=== PATIENT | female | born 1935 | race Caucasian/White ===

== ENCOUNTER 2019-03-13 01:41 | Emergency (ER) | payer OTHER, MEDICAID ==
[~2019-03-13] VITALS: Ht 162.6 cm; Wt 117.9 kg
--- NOTE | 2019-03-13 01:41 | NUR ---
0141 - Patient to ER bed 3 to gown for evaluation. Side rails up.
[2019-03-13 01:51] VITALS: BP_SYST 172
--- NOTE | 2019-03-13 02:20 | NUR ---
Patient arrived by ambulance [id number] and able to verbalize her needs. Complaints of dizziness and nausea x 10 days. Dizziness increased this evening. Patient able to ambulate with steady gait. Denies any chest pain, sob, black out, chill, and fever.
[2019-03-13 02:27] LABS: BASOPHILS % (AUTO) 0.2 % (0.0-2.0); HEMATOCRIT 41.2 % (36-48); LYMPHOCYTES # (AUTO) 0.7 K/uL (1.0-5.5); LYMPHOCYTES % (AUTO) 7.7 % (20.5-51.5); MEAN CORPUSCULAR HEMOGLOBIN 32 pg (27-31); MEAN CORPUSCULAR HGB CONC 34 % (32-36); MEAN CORPUSCULAR VOLUME 94 fL (79.0-98.0); MONOCYTES # (AUTO) 0.1 K/uL (0.0-1.0); MONOCYTES % (AUTO) 1.6 % (1.7-9.3); NEUTROPHILS # (AUTO) 8.3 K/uL (1.8-7.7); NEUTROPHILS % (AUTO) 90.5 % (40.0-70.0); PLATELET COUNT (AUTO) 186 K/uL (130-430); RED BLOOD CELL COUNT(AUTO) 4.38 MIL/uL (4.2-6.2); RED CELL DISTRIBUTION WIDTH 13.3 % (9.0-15.0); WHITE BLOOD COUNT (AUTO) 9.2 K/uL (4.8-10.8)
[2019-03-13 02:42] LABS: ANION GAP 9 (5-15); CALCIUM 9.8 mg/dL (8.4-11.0); CHLORIDE 99 mmol/L (98-107); CREATININE 1.06 mg/dL (0.55-1.30); GLUCOSE 167 mg/dL (70-99); SODIUM SERUM 131 mmol/L (136-145); UREA NITROGEN, BLOOD 17 mg/dL (8-21)
[2019-03-13 02:46] LABS: ALANINE AMINOTRANSFERASE 23 U/L (12-78); ALBUMIN 3.3 g/dL (3.4-4.8); ASPARTATE AMINOTRANSFERASE 21 U/L (10-37); TOTAL BILIRUBIN 0.6 mg/dL (0.0-1.0)
--- NOTE | 2019-03-13 03:08 | NUR ---
Urine sample collected and brought to lab.
[2019-03-13 03:11] LABS: BILIRUBIN,URINE NEGATIVE (NEGATIVE); CLARITY/URINE CLEAR (CLEAR); COLOR,URINE YELLOW (YELLOW); GLUCOSE,URINE NEGATIVE (NEGATIVE); KETONES,URINE NEGATIVE (NEGATIVE); LEUKOCYTE ESTERASE ,URINE NEGATIVE (NEGATIVE); NITRITE, URINE NEGATIVE (NEGATIVE); PROTEIN URINE NEGATIVE (NEGATIVE); UROBILINOGEN,URINE 0.2 (0.2-1.0)
[2019-03-13 03:15] LABS: BLOOD, URINE TRACE (NEGATIVE)
[2019-03-13 03:17] LABS: WBC,URINE 0-3 /HPF (0-3)
[2019-03-13 03:18] LABS: BACTERIA,URINE None Seen /HPF (None Seen)
--- NOTE | 2019-03-13 03:41 | NUR ---
MAHENDRA [place] at bedside examining patient.
[2019-03-13 04:25] VITALS: BP_SYST 136
--- NOTE | 2019-03-13 04:25 | NUR ---
Patient given written and verbal discharge instructions and verbalizes understanding. ER MD discussed with patient the results and treatment provided. Patient in stable condition. ID arm band removed. Patient educated on pain management and to follow up with PMD. Pain Scale 0/10. Opportunity for questions provided and answered. Medication side effect fact sheet provided.
== END 2019-03-13 04:25 | disposition home or self-care (01) ==
LOC: SED 01:41
DX: R42 Dizziness and giddiness (principal); I10 Essential (primary) hypertension
CPT/HCPCS: 36415; 80053; 81000-TC; 84484; 85025; 93005; 99283; 99284